=== PATIENT | female | born 1975 | race Hispanic/Latino ===

== ENCOUNTER 2021-06-07 16:00 | Outpatient (RCR) | payer BC | END 2021-06-10 | LOC: PT 16:00 | PROVIDERS: ATTEND Podiatrist Foot & Ankle Surgery | DX: M72.2 Plantar fascial fibromatosis (principal) ==

== ENCOUNTER 2021-06-21 16:00 | Outpatient (RCR) | payer BC | END 2021-07-10 | LOC: PT 16:00 | PROVIDERS: ATTEND Podiatrist Foot & Ankle Surgery | DX: M72.2 Plantar fascial fibromatosis (principal) | CPT/HCPCS: 97139 ==